=== PATIENT | female | born 1945 | race Caucasian/White ===

== ENCOUNTER 2016-06-24 13:35 | Outpatient (CLI) | payer OTHER ==
--- NOTE | 2016-06-24 14:37 | DIAGNOSTIC IMAGING REPORT ---
PROCEDURE: XR LUMBAR SPINE 5 VIEWS INDICATION: LEFT HIP PAIN TECHNIQUE: Five views of the lumbar spine including bilateral obliques. COMPARISON: 11/01/2014 FINDINGS: Five lumbar-type vertebral bodies are present. Normal vertebral body height without fracture. Grade 1 anterolisthesis L4-5, stable compared to prior. Normal transverse alignment. Mild disc height loss L3-4 and L4-5, chronic. Moderate abdominal aortic calcification and common iliac calcification. Surgical clips now present in the right retroperitoneum. The visible osseous pelvis and bowel gas pattern are normal. Oblique views demonstrate no pars defects. Mild facet hypertrophy and sclerosis at the L4-5 and L5-S1. level. IMPRESSION: 1. Grade 1 L4-5 anterolisthesis, probably secondary to facet arthropathy, chronic. 2. Mild L3-4 and L4-5 disc height loss, also chronic.
--- NOTE | 2016-06-24 14:44 | DIAGNOSTIC IMAGING REPORT ---
PROCEDURE: XR HIP 2VW W W/O AP PELVIS-LT INDICATION: LEFT HIP PAIN TECHNIQUE: AP view of the pelvis and hips with lateral view of the left hip. COMPARISON: 07/23/2010 FINDINGS: LEFT HIP: Left arthroplasty components are in position. There has been interval development of ill-defined periprosthetic demineralization involving the left acetabulum. The femoral component appears normal. No fractures or dislocation. Chronic curvilinear dystrophic calcification adjacent to the superior acetabular rim. PELVIS: No other areas of osteolysis. Mild spurring and sclerosis of the right acetabulum. No fractures. Mild degenerative spurring and joint space loss at the sacroiliac joints and pubic symphysis. Surgical staple ring in the low left pelvis and moderate to large amount of retained stool. IMPRESSION: 1. 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 Orthopedic consult recommended. 2. Otherwise mild degenerative changes.
== END 2016-06-24 23:00 | disposition home or self-care (01) ==
LOC: XR SRH 13:35
DX: M47.816 Spondylosis without myelopathy or radiculopathy, lumbar region (principal); M51.36 Other intervertebral disc degeneration, lumbar region; R93.7 Abnormal findings on diagnostic imaging of other parts of musculoskeletal system; Z96.642 Presence of left artificial hip joint